=== PATIENT | male | born 1975 | race Caucasian/White ===

== ENCOUNTER 2018-06-18 13:32 | Emergency (ER) | payer SELFPAY ==
[~2018-06-18] VITALS: Ht 175.3 cm; Wt 90.9 kg
[2018-06-18 13:42] VITALS: Ht 175.3 cm; Wt 90.9 kg
[2018-06-18] MEDS ORDERED: TORADOL10 MG PO (17:08)
[2018-06-18 17:32] VITALS: BP 117/82
== END 2018-06-18 17:33 | disposition home or self-care (01) ==
LOC: D.ER 13:32
DX: M79.661 Pain in right lower leg (principal); F17.200 Nicotine dependence, unspecified, uncomplicated

== ENCOUNTER 2021-05-19 14:30 | Emergency (ER) | payer SELFPAY ==
[~2021-05-19] VITALS: Ht 175.3 cm; Wt 81.8 kg
[~2021-05-19 14:30] MED LIST: TORADOL10 MG PO
[2021-05-19 14:42] VITALS: Ht 175.3 cm; Wt 81.8 kg
[2021-05-19 15:23] LABS: BILIRUBIN NEGATIVE (NEGATIVE); KETONE NEGATIVE mg/dL (< 1+); NITRITE NEGATIVE (NEGATIVE); UROBILINOGEN NORMAL mg/dL (< 2)
[2021-05-19 15:32] LABS: EOSINOPHILS 1.8 % (0-7); HEMATOCRIT 48.5 % (42.0-54.0); HEMOGLOBIN 16.1 g/dL (13.5-17.5); LYMPHOCYTES 28.5 % (15-50); MCH 28.6 pg (26.0-34.0); MCHC 33.1 g/dL (31.0-37.0); MCV 86.3 fL (80.0-100.0); MEAN PLATELET VOLUME 7.1 fL (7.4-10.4); MONOCYTES 15.7 % (2-11); PLATELET COUNT 245 10x3/uL (130-400); RBC 5.62 10x6/uL (4.20-6.10); RDW 14.2 % (11.5-14.5); WBC 5.7 10x3/uL (4.8-10.8)
[2021-05-19 15:39] LABS: CALC OSMOLALITY 276 mosm/kg (275-300); CALCIUM 8.4 mg/dL (8.5-10.1); CHLORIDE - SERUM 102 mmol/L (98-107); CREATININE - SERUM 1.1 mg/dL (0.6-1.3); GLUCOSE 98 mg/dL (74-106); POTASSIUM - SERUM 3.7 mmol/L (3.5-5.1); SODIUM 138 mmol/L (136-145); UREA NITROGEN 15 mg/dL (7-18); eGFR NON AFRICAN AMERICAN 76 mL/min (90-120)
[2021-05-19 15:40] LABS: APTT 25.7 SECONDS (22.8-39.4); INR 1.06 (0.85-1.17); PROTIME 12.8 SECONDS (11.6-15.0)
[2021-05-19 15:48] LABS: UDS - AMPHET POSITIVE QUAL (NEGATIVE); UDS - BARB NEGATIVE QUAL (NEGATIVE); UDS - BENZO NEGATIVE QUAL (NEGATIVE); UDS - COCAINE NEGATIVE QUAL (NEGATIVE); UDS - OPIATE NEGATIVE QUAL (NEGATIVE); UDS - PCP NEGATIVE QUAL (NEGATIVE); UDS - THC NEGATIVE QUAL (NEGATIVE)
[2021-05-19 15:56] LABS: ALBUMIN 3.8 g/dL (3.4-5.0); ALKALINE PHOSPHATASE 105 U/L (30-120); ALT (SGPT) 29 U/L (10-68); C-REACTIVE PROTEIN 0.5 mg/dL (0.0-0.9); CKMB 1.4 U/L (0.0-3.6); CREATINE KINASE 98 UL (21-232); PRO BNP 38 pg/mL (0-125); PROTEIN - SERUM 7.6 g/dL (6.4-8.2)
[2021-05-19 15:57] LABS: TROPONIN-I < 0.017 ng/mL (0.000-0.060)
[2021-05-19 16:54] LABS: ERYTHROCYTE SEDIMENTATION RATE 4 mm/hr (0-15)
[2021-05-19 17:10] VITALS: BP 125/89
== END 2021-05-19 17:20 | disposition home or self-care (01) ==
LOC: D.ER 14:30
PROVIDERS: Family Medicine
DX: M79.10 Myalgia, unspecified site (principal); R53.83 Other fatigue; R53.81 Other malaise; F15.10 Other stimulant abuse, uncomplicated